=== PATIENT | male | born 1970 | race Asian ===

== ENCOUNTER 2016-07-02 10:31 | Outpatient (CLI) | payer OTHER ==
[~2016-07-02 10:31] MED LIST: ALPR0.2583 PO; ATOR40TA68 PO; GLIP-172 PO; LOSA100T11 PO; METF-305 PO
[2016-07-02 11:26] LABS: BASOPHILS % (AUTO) 0.5 % (0.0-2.0); EOSINOPHILS # (AUTO) 0.1 K/uL (0.0-0.4); EOSINOPHILS % (AUTO) 1.7 % (0.0-4.0); HEMATOCRIT 46.6 % (36-54); HEMOGLOBIN 15.6 g/dL (14.0-18.0); LYMPHOCYTES # (AUTO) 2.2 K/uL (1.0-5.5); LYMPHOCYTES % (AUTO) 28.5 % (20.5-51.5); MEAN CORPUSCULAR HEMOGLOBIN 30 pg (27-31); MEAN CORPUSCULAR HGB CONC 33 % (32-36); MEAN CORPUSCULAR VOLUME 90 fL (79.0-98.0); MONOCYTES # (AUTO) 0.6 K/uL (0.0-1.0); MONOCYTES % (AUTO) 7.4 % (1.7-9.3); NEUTROPHILS # (AUTO) 4.9 K/uL (1.8-7.7); NEUTROPHILS % (AUTO) 61.9 % (40.0-70.0); PLATELET COUNT (AUTO) 305 K/uL (130-430); RED BLOOD CELL COUNT(AUTO) 5.21 MIL/uL (4.2-6.2); RED CELL DISTRIBUTION WIDTH 12.7 % (9.0-15.0); WHITE BLOOD COUNT (AUTO) 7.8 K/uL (4.8-10.8)
[2016-07-02 11:48] LABS: CALCIUM 9.1 mg/dL (8.4-11.0); CREATININE 0.93 mg/dL (0.55-1.30); POTASSIUM 3.9 mmol/L (3.5-5.1); THYROID STIMULATING HORMONE 0.36 uIu/mL (0.34-4.82); TOTAL BILIRUBIN 0.7 mg/dL (0.0-1.0); TOTAL PROTEIN, SERUM 7.9 g/dL (6.4-8.3)
[2016-07-03 12:09] LABS: PROSTATE SPECIFIC AG 0.3 ng/mL (0.0-4.0)
[2016-07-03 13:53] LABS: HEMOGLOBIN A1C 7.5 % (4.8-5.6)
== END 2016-07-02 19:21 | disposition home or self-care (01) ==
LOC: SLB 10:31
PROVIDERS: ATTEND Internal Medicine
DX: E11.9 Type 2 diabetes mellitus without complications (principal); I10 Essential (primary) hypertension; E78.5 Hyperlipidemia, unspecified
CPT/HCPCS: 36415; 80053; 80061; 82043; 82306; 82570; 83036; 84153; 84443-TC; 85025

== ENCOUNTER 2017-03-07 05:19 | Inpatient (IN) | payer OTHER ==
[~2017-03-07] VITALS: Ht 172.7 cm; Wt 108.4 kg
[2017-03-07 05:23] VITALS: BP_SYST 131
[2017-03-07] MEDS ORDERED: NACL 0.9% 1,000 ML IV ONE ×2 (05:27→05:30)
[2017-03-07] MEDS ORDERED: ASPIRIN 81 MG TAB.CHEW PO ONE (05:30)
[2017-03-07] MEDS ORDERED: NITROGLYCERIN 1 INCH (GM) OINT. ONE (05:39)
[2017-03-07] MEDS ORDERED: ASPIRIN 81 MG TAB.CHEW ONE (05:40)
[2017-03-07] MEDS ORDERED: NITROGLYCERIN 1 INCH (GM) OINT. TP ONE (05:45)
[2017-03-07] MEDS ORDERED: ASPIRIN 325 MG TABLET (ECOTRIN) PO ONE (05:45)
[2017-03-07 05:50] LABS: BASOPHILS # (AUTO) 0.1 K/uL (0.0-0.2); BASOPHILS % (AUTO) 0.8 % (0.0-2.0); EOSINOPHILS # (AUTO) 0.2 K/uL (0.0-0.4); EOSINOPHILS % (AUTO) 2.9 % (0.0-4.0); HEMATOCRIT 45.3 % (36-54); HEMOGLOBIN 14.7 g/dL (14.0-18.0); LYMPHOCYTES # (AUTO) 2.2 K/uL (1.0-5.5); LYMPHOCYTES % (AUTO) 31.7 % (20.5-51.5); MEAN CORPUSCULAR HEMOGLOBIN 29 pg (27-31); MEAN CORPUSCULAR HGB CONC 33 % (32-36); MEAN CORPUSCULAR VOLUME 89 fL (79.0-98.0); MONOCYTES # (AUTO) 1.1 K/uL (0.0-1.0); NEUTROPHILS # (AUTO) 3.3 K/uL (1.8-7.7); NEUTROPHILS % (AUTO) 48.6 % (40.0-70.0); PLATELET COUNT (AUTO) 326 K/uL (130-430); RED BLOOD CELL COUNT(AUTO) 5.07 MIL/uL (4.2-6.2); WHITE BLOOD COUNT (AUTO) 6.9 K/uL (4.8-10.8)
[2017-03-07 06:02] LABS: BILIRUBIN,URINE NEGATIVE (NEGATIVE); BLOOD, URINE NEGATIVE (NEGATIVE); CLARITY/URINE CLEAR (CLEAR); COLOR,URINE YELLOW (YELLOW); GLUCOSE,URINE NEGATIVE (NEGATIVE); KETONES,URINE NEGATIVE (NEGATIVE); LEUKOCYTE ESTERASE ,URINE NEGATIVE (NEGATIVE); NITRITE, URINE NEGATIVE (NEGATIVE); PH,URINE 6.5 (5.0-8.0); PROTEIN URINE NEGATIVE (NEGATIVE); UROBILINOGEN,URINE 0.2 (0.2-1.0)
[2017-03-07 06:06] LABS: CREATININE 0.88 mg/dL (0.55-1.30); POTASSIUM 3.3 mmol/L (3.5-5.1)
[2017-03-07] MEDS ORDERED: GLIP10TA11 PO (06:13)
[2017-03-07] MEDS ORDERED: OMEP40CA33 PO (06:13)
[2017-03-07] MEDS ORDERED: ASPI81TA2 PO (06:13)
[2017-03-07] MEDS ORDERED: GABA-531 PO (06:13)
[2017-03-07] MEDS ORDERED: HYDR25TA4 PO (06:13)
[2017-03-07] MEDS ORDERED: MORPHINE 4 MG/ML INJ. SYRINGE IVP ONE (06:15)
[2017-03-07] MEDS ORDERED: POTASSIUM CHLORIDE 20 MEQ/PKT PACKET PO ONE (06:30)
[2017-03-07] MEDS ORDERED: POTASSIUM CHLORIDE 20 MEQ/PKT PACKET ONE (06:31)
[2017-03-07] MEDS ORDERED: LORazepam 2 MG/ML VIAL (FOR ER USE) ONE (06:35)
[2017-03-07] MEDS ORDERED: LORazepam 2 MG/ML VIAL (FOR ER USE) IVP ONE (06:45)
[2017-03-07 06:50] VITALS: BP_SYST 120
[2017-03-07 07:47] LABS: ALBUMIN 3.6 g/dL (3.4-4.8); BILIRUBIN,DIRECT 0.1 mg/dL (0.0-0.3); TOTAL BILIRUBIN 0.3 mg/dL (0.0-1.0)
[2017-03-07 08:00] VITALS: BP_SYST 121
[2017-03-07] MEDS: ASPIRIN 81 MG TAB.CHEW PO SCH (10:45)
[2017-03-07] MEDS ORDERED: ACETAMINOPHEN 325 MG TABLET PO PRN (11:00)
[2017-03-07 11:35] VITALS: BP_SYST 121
[2017-03-07] MEDS ORDERED: traMADol HCL HCL 50 MG TABLET (ULTRAM) PO PRN ×2 (11:45)
[2017-03-07] MEDS: INSULIN REGULAR, HUMAN 100 UNITS/ML, 10 ML VIAL (novoLIN R) SUBCUT PRN ×2 (12:09→17:19)
[2017-03-07] MEDS: traMADol HCL HCL 50 MG TABLET (ULTRAM) PO SCH ×3 (15:41→23:44)
[2017-03-07 15:54] VITALS: BP_SYST 115
[2017-03-07] MEDS ORDERED: ENOXAPARIN SODIUM 40 MG/0.4 ML SYRINGE SUBCUT SCH (17:00)
[2017-03-07] MEDS: LORazepam 1 MG TABLET PO PRN (17:16)
[2017-03-07] MEDS ORDERED: POTASSIUM CHLORIDE 20 MEQ/PKT PACKET PO SCH (18:00)
[2017-03-07] MEDS: metFORMIN HCL 500 MG TABLET PO SCH (18:05)
[2017-03-07 19:58] VITALS: BP_SYST 127
[2017-03-08 00:40] VITALS: BP_SYST 120
[2017-03-08 04:40] VITALS: BP_SYST 121
[2017-03-08] MEDS: traMADol HCL HCL 50 MG TABLET (ULTRAM) PO SCH ×2 (06:17→11:34)
[2017-03-08] MEDS: LORazepam 1 MG TABLET PO PRN (06:18)
[2017-03-08 07:18] LABS: ANION GAP 8 (5-15); CALCIUM 9.1 mg/dL (8.4-11.0); CHLORIDE 104 mmol/L (98-107); CREATININE 0.78 mg/dL (0.55-1.30); GLUCOSE 177 mg/dL (70-99); POTASSIUM 4.3 mmol/L (3.5-5.1); SODIUM SERUM 137 mmol/L (136-145); UREA NITROGEN, BLOOD 13 mg/dL (8-21)
[2017-03-08 07:21] LABS: GFR AFRICAN AMERICAN 136 mL/min (>90)
[2017-03-08 07:22] LABS: THYROID STIMULATING HORMONE 1.29 uIu/mL (0.36-3.74)
[2017-03-08 08:00] VITALS: BP_SYST 129
[2017-03-08] MEDS: ASPIRIN 81 MG TAB.CHEW PO SCH (08:19)
[2017-03-08] MEDS: metFORMIN HCL 500 MG TABLET PO SCH (08:19)
[2017-03-08] MEDS ORDERED: HYDROCHLOROTHIAZIDE 25 MG TABLET (HCTZ) PO SCH (09:00)
[2017-03-08] MEDS ORDERED: OMEPRAZOLE 20 MG CAPSULE.DR (PriLOSEC) PO SCH (09:00)
[2017-03-08] MEDS ORDERED: GABAPENTIN 300 MG CAPSULE PO SCH (09:00)
[2017-03-08] MEDS ORDERED: ATORVASTATIN 20 MG TABLET PO SCH (09:00)
[2017-03-08] MEDS ORDERED: LOSARTAN POTASSIUM 50 MG TABLET (COZAAR) PO SCH (09:00)
[2017-03-08] MEDS: INSULIN REGULAR, HUMAN 100 UNITS/ML, 10 ML VIAL (novoLIN R) SUBCUT PRN (11:36)
[2017-03-08 12:27] VITALS: BP_SYST 134
[2017-03-08 12:52] VITALS: BP_SYST 134
[2017-03-09 06:09] LABS: HEPATITIS A AB, IgM Negative (Negative); HEPATITIS B CORE AB, IgM Negative (Negative); HEPATITIS B SURFACE AG Negative (Negative)
[2017-03-09 08:06] LABS: % FREE PSA 46.7 % (.); FREE PSA 0.14 ng/mL; PROSTATE SPECIFIC AG TOTAL 0.3 ng/mL (0.0-4.0)
== END 2017-03-08 13:17 | disposition home or self-care (01) | DRG 313 ==
LOC: SED 05:19 → STU 06:16
PROVIDERS: ADMIT Internal Medicine; ATTEND Internal Medicine
DX: R07.89 Other chest pain (principal); E11.9 Type 2 diabetes mellitus without complications; E87.6 Hypokalemia; E78.5 Hyperlipidemia, unspecified; E66.09 Other obesity due to excess calories; I10 Essential (primary) hypertension; K21.9 Gastro-esophageal reflux disease without esophagitis; F41.9 Anxiety disorder, unspecified; F17.200 Nicotine dependence, unspecified, uncomplicated; Z80.3 Family history of malignant neoplasm of breast; Z82.49 Family history of ischemic heart disease and other diseases of the circulatory system; Z83.3 Family history of diabetes mellitus; Z68.36 Body mass index [BMI] 36.0-36.9, adult; Z79.899 Other long term (current) drug therapy; Z79.82 Long term (current) use of aspirin
CPT/HCPCS: 36415; 71010; 72050-TC; 80048; 80061; 80076; 81003; 82306; 82962; 83036; 83735-TC; 84153; 84443-TC; 84484; 85025; 86705; 86709; 87340; 93005; 96361; 96374; 96375; 99285; J1650; J2060; J2270; J7030

== ENCOUNTER 2017-05-23 06:09 | Inpatient (IN) | payer OTHER ==
[~2017-05-23] VITALS: Ht 172.7 cm; Wt 107.0 kg
[2017-05-23] VITALS (7 sets, daily range): BP systolic 106–134
[~2017-05-23 06:09] MED LIST changes: +ASPI81TA2 PO; +GABA-531 PO; +HYDR25TA4 PO; +OMEP40CA33 PO
[2017-05-23] MEDS ORDERED: ASPIRIN 81 MG TAB.CHEW PO ONE (06:45)
[2017-05-23 07:07] LABS: BASOPHILS # (AUTO) 0.1 K/uL (0.0-0.2); BASOPHILS % (AUTO) 0.6 % (0.0-2.0); EOSINOPHILS # (AUTO) 0.2 K/uL (0.0-0.4); EOSINOPHILS % (AUTO) 2.1 % (0.0-4.0); HEMATOCRIT 45.3 % (36-54); LYMPHOCYTES % (AUTO) 23.8 % (20.5-51.5); MEAN CORPUSCULAR HEMOGLOBIN 30 pg (27-31); MEAN CORPUSCULAR HGB CONC 33 % (32-36); MEAN CORPUSCULAR VOLUME 89 fL (79.0-98.0); MONOCYTES # (AUTO) 0.7 K/uL (0.0-1.0); MONOCYTES % (AUTO) 7.6 % (1.7-9.3); NEUTROPHILS # (AUTO) 5.6 K/uL (1.8-7.7); NEUTROPHILS % (AUTO) 65.9 % (40.0-70.0); PLATELET COUNT (AUTO) 340 K/uL (130-430); RED BLOOD CELL COUNT(AUTO) 5.09 MIL/uL (4.2-6.2); RED CELL DISTRIBUTION WIDTH 12.6 % (9.0-15.0); WHITE BLOOD COUNT (AUTO) 8.6 K/uL (4.8-10.8)
[2017-05-23 07:17] LABS: CALCIUM 9.3 mg/dL (8.4-11.0); CREATININE 0.91 mg/dL (0.55-1.30); POTASSIUM 3.6 mmol/L (3.5-5.1)
[2017-05-23 07:18] LABS: INR 0.9 (0.80-1.20); PROTHROMBIN TIME 9.5 SECS (9.5-12.5)
[2017-05-23 07:22] LABS: ALBUMIN 3.7 g/dL (3.4-4.8); TOTAL BILIRUBIN 0.3 mg/dL (0.0-1.0)
[2017-05-23] MEDS ORDERED: NITROGLYCERIN 0.4 MG TAB.SUBL SL ONE ×2 (07:48→08:00)
[2017-05-23] MEDS ORDERED: NACL 0.9% 1,000 ML IV ONE (08:00)
[2017-05-23] MEDS ORDERED: CLOPIDOGREL BISULFATE 75 MG TABLET PO ONE (08:00)
[2017-05-23] MEDS ORDERED: GLUCOSE 15 GM GEL (in 37.5 GM TUBE) PO PRN ×2 (08:30)
[2017-05-23] MEDS ORDERED: DEXTROSE 50%-WATER 50 ML DISP.SYRIN IVP PRN ×2 (08:30)
[2017-05-23] MEDS ORDERED: ALPRAZolam 0.25 MG TABLET PO SCH (09:00)
[2017-05-23] MEDS ORDERED: glipiZIDE XL 5 MG TAB ( GLUCOTROL XL) PO ONE (10:00)
[2017-05-23] MEDS: ATORVASTATIN 20 MG TABLET PO SCH (11:01)
[2017-05-23] MEDS: GABAPENTIN 300 MG CAPSULE PO SCH (11:01)
[2017-05-23] MEDS: ASPIRIN 81 MG TAB.CHEW PO SCH (11:02)
[2017-05-23] MEDS: OMEPRAZOLE 20 MG CAPSULE.DR (PriLOSEC) PO SCH (11:02)
[2017-05-23] MEDS: LOSARTAN POTASSIUM 50 MG TABLET (COZAAR) PO SCH (11:02)
[2017-05-23] MEDS: INSULIN ASPART 100 UNITS/ML, 10 ML VIAL (NovoLOG) SUBCUT PRN ×3 (12:18→21:19)
[2017-05-23] MEDS: ALPRAZolam 0.25 MG TABLET PO PRN ×2 (12:19→20:08)
[2017-05-23] MEDS: metFORMIN HCL 500 MG TABLET PO SCH (17:21)
[2017-05-24 00:13] VITALS: BP_SYST 108
[2017-05-24] MEDS: INSULIN ASPART 100 UNITS/ML, 10 ML VIAL (NovoLOG) SUBCUT PRN ×2 (06:08→11:29)
[2017-05-24 07:56] LABS: ALBUMIN 3.7 g/dL (3.4-4.8); CALCIUM 9.7 mg/dL (8.4-11.0); CREATININE 0.97 mg/dL (0.55-1.30); POTASSIUM 4.5 mmol/L (3.5-5.1); THYROID STIMULATING HORMONE 0.39 uIu/mL (0.34-4.82); TOTAL BILIRUBIN 0.5 mg/dL (0.0-1.0)
[2017-05-24] MEDS: metFORMIN HCL 500 MG TABLET PO SCH (08:00)
[2017-05-24 08:05] VITALS: BP_SYST 124
[2017-05-24] MEDS: ASPIRIN 81 MG TAB.CHEW PO SCH (08:08)
[2017-05-24] MEDS: GABAPENTIN 300 MG CAPSULE PO SCH (08:08)
[2017-05-24] MEDS: LOSARTAN POTASSIUM 50 MG TABLET (COZAAR) PO SCH (08:08)
[2017-05-24] MEDS: ATORVASTATIN 20 MG TABLET PO SCH (08:08)
[2017-05-24] MEDS: OMEPRAZOLE 20 MG CAPSULE.DR (PriLOSEC) PO SCH (08:08)
[2017-05-24] MEDS ORDERED: glipiZIDE XL 5 MG TAB ( GLUCOTROL XL) PO SCH ×2 (09:00→17:00)
[2017-05-24] MEDS: ALPRAZolam 0.25 MG TABLET PO PRN (10:09)
[2017-05-24] MEDS ORDERED: busPIRone HCL 5 MG TABLET PO ONE (11:30)
[2017-05-24] MEDS ORDERED: busPIRone HCL 5 MG TABLET ONE (11:48)
[2017-05-24 12:26] VITALS: BP_SYST 131
[2017-05-24 15:42] VITALS: BP_SYST 142
[2017-05-24 16:55] VITALS: BP_SYST 137
[2017-05-24] MEDS ORDERED: busPIRone HCL 5 MG TABLET PO SCH (21:00)
== END 2017-05-24 16:12 | disposition home or self-care (01) | DRG 392 ==
LOC: SED 06:09 → STU 08:12
PROVIDERS: ADMIT Internal Medicine; ATTEND Internal Medicine
DX: K21.9 Gastro-esophageal reflux disease without esophagitis (principal); E66.01 Morbid (severe) obesity due to excess calories; E87.1 Hypo-osmolality and hyponatremia; E11.9 Type 2 diabetes mellitus without complications; E78.5 Hyperlipidemia, unspecified; I10 Essential (primary) hypertension; F41.9 Anxiety disorder, unspecified; F17.200 Nicotine dependence, unspecified, uncomplicated; Z80.3 Family history of malignant neoplasm of breast; Z82.49 Family history of ischemic heart disease and other diseases of the circulatory system; Z83.3 Family history of diabetes mellitus; Z68.35 Body mass index [BMI] 35.0-35.9, adult; Z79.899 Other long term (current) drug therapy; Z79.82 Long term (current) use of aspirin; Z71.6 Tobacco abuse counseling
CPT/HCPCS: 36415; 71045; 80053; 80061; 82550-TC; 82962; 83036; 84443-TC; 84484; 85025; 85610-TC; 93005; 93017; 96360; 99285; J1815; J7030

== ENCOUNTER 2017-11-04 06:55 | Day surgery (SDC) | payer OTHER ==
[~2017-11-04] VITALS: Ht 172.7 cm; Wt 104.8 kg
[~2017-11-04 06:55] MED LIST changes: -ALPR0.2583 PO; +ASPI-1155 PO; -ASPI81TA2 PO; -GLIP-172 PO; +GLIP-214 PO; -HYDR25TA4 PO; -LOSA100T11 PO; +LOSA100T3 PO; -METF-305 PO; +METF10004 PO
[2017-11-04] MEDS ORDERED: MIDAZOLAM HCL 5 MG/5 ML VIAL ONE (08:02)
[2017-11-04] MEDS ORDERED: MEPERIDINE HCL/PF 100 MG/ML AMP ONE (08:02)
[2017-11-04] MEDS: MIDAZOLAM HCL 5 MG/5 ML VIAL ONE ×2 (09:16→09:19)
[2017-11-04] MEDS: fentaNYL CITRATE/PF 100 MCG/2 ML AMP ONE ×2 (09:16→09:19)
[2017-11-04 11:32] VITALS: BP_SYST 120
== END 2017-11-04 10:35 | disposition home or self-care (01) ==
LOC: SDS 06:55
PROVIDERS: ATTEND Internal Medicine Gastroenterology
DX: K31.7 Polyp of stomach and duodenum (principal); K29.70 Gastritis, unspecified, without bleeding; F41.9 Anxiety disorder, unspecified; E11.9 Type 2 diabetes mellitus without complications; K21.9 Gastro-esophageal reflux disease without esophagitis; E66.01 Morbid (severe) obesity due to excess calories; Z68.35 Body mass index [BMI] 35.0-35.9, adult; I10 Essential (primary) hypertension; E78.5 Hyperlipidemia, unspecified; F15.90 Other stimulant use, unspecified, uncomplicated; F17.210 Nicotine dependence, cigarettes, uncomplicated; Z79.82 Long term (current) use of aspirin; Z79.84 Long term (current) use of oral hypoglycemic drugs; Z79.899 Other long term (current) drug therapy; Z72.89 Other problems related to lifestyle; Z83.3 Family history of diabetes mellitus; Z80.3 Family history of malignant neoplasm of breast; Z82.49 Family history of ischemic heart disease and other diseases of the circulatory system
CPT/HCPCS: 43239; 43251; 88305; 88312; 88313; J2250; J3010; J2175

== ENCOUNTER 2018-03-21 05:50 | Day surgery (SDC) | payer OTHER ==
[~2018-03-21] VITALS: Ht 172.7 cm; Wt 104.8 kg
[2018-03-21] MEDS ORDERED: SIMETHICONE 40 MG/0.6 ML ML ONE (06:32)
[2018-03-21] MEDS: fentaNYL CITRATE/PF 100 MCG/2 ML AMP ONE ×2 (08:10→08:12)
[2018-03-21] MEDS: MIDAZOLAM HCL 5 MG/5 ML VIAL ONE ×3 (08:10→08:16)
[2018-03-21 10:06] VITALS: BP_SYST 135
== END 2018-03-21 09:25 | disposition home or self-care (01) ==
LOC: SMU 05:50 → SDS 05:50
PROVIDERS: ATTEND Internal Medicine
DX: Z12.11 Encounter for screening for malignant neoplasm of colon (principal); D12.3 Benign neoplasm of transverse colon; D12.5 Benign neoplasm of sigmoid colon; K62.1 Rectal polyp; I10 Essential (primary) hypertension; E11.9 Type 2 diabetes mellitus without complications; E78.5 Hyperlipidemia, unspecified; Z79.899 Other long term (current) drug therapy; Z79.84 Long term (current) use of oral hypoglycemic drugs; F17.210 Nicotine dependence, cigarettes, uncomplicated; Z68.35 Body mass index [BMI] 35.0-35.9, adult
CPT/HCPCS: 45380; 45385; 82962; 88305; J2250; J3010

== ENCOUNTER 2018-09-03 22:47 | Emergency (ER) | payer OTHER ==
[~2018-09-03] VITALS: Ht 172.7 cm; Wt 106.6 kg
[~2018-09-03 22:47] MED LIST changes: -GLIP-214 PO; +GLIP10TA21 PO; +METF-381 PO; -METF10004 PO
[2018-09-03 23:03] VITALS: BP_SYST 142
[2018-09-03] MEDS ORDERED: MORPHINE 4 MG/ML INJ. SYRINGE IVP ONE (23:30)
[2018-09-03] MEDS ORDERED: ONDANSETRON HCL 4 MG/2 ML VIAL IVP ONE (23:30)
[2018-09-03 23:44] LABS: BASOPHILS # (AUTO) 0.1 K/uL (0.0-0.2); BASOPHILS % (AUTO) 0.8 % (0.0-2.0); EOSINOPHILS # (AUTO) 0.1 K/uL (0.0-0.4); EOSINOPHILS % (AUTO) 1.2 % (0.0-4.0); HEMOGLOBIN 15.3 g/dL (14.0-18.0); LYMPHOCYTES % (AUTO) 27.1 % (20.5-51.5); MEAN CORPUSCULAR HEMOGLOBIN 31 pg (27-31); MEAN CORPUSCULAR HGB CONC 34 % (32-36); MEAN CORPUSCULAR VOLUME 90 fL (79.0-98.0); MONOCYTES # (AUTO) 0.9 K/uL (0.0-1.0); NEUTROPHILS % (AUTO) 62.9 % (40.0-70.0); PLATELET COUNT (AUTO) 330 K/uL (130-430); RED CELL DISTRIBUTION WIDTH 13.4 % (9.0-15.0); WHITE BLOOD COUNT (AUTO) 11.1 K/uL (4.8-10.8)
[2018-09-04 00:02] LABS: CREATININE 1.1 mg/dL (0.55-1.30); POTASSIUM 3.7 mmol/L (3.5-5.1)
[2018-09-04 00:03] LABS: ALBUMIN 3.5 g/dL (3.4-4.8); TOTAL BILIRUBIN 0.4 mg/dL (0.0-1.0)
[2018-09-04] MEDS ORDERED: KETOROLAC TROMETHAMINE 30 MG VIAL IVP ONE (01:00)
[2018-09-04] MEDS ORDERED: KETOROLAC TROMETHAMINE 30 MG VIAL IM ONE (01:00)
[2018-09-04 01:08] VITALS: BP_SYST 136
== END 2018-09-04 01:08 | disposition home or self-care (01) ==
LOC: SED 22:47
DX: G44.209 Tension-type headache, unspecified, not intractable (principal); E11.9 Type 2 diabetes mellitus without complications; I10 Essential (primary) hypertension; K21.9 Gastro-esophageal reflux disease without esophagitis; E78.00 Pure hypercholesterolemia, unspecified; F17.200 Nicotine dependence, unspecified, uncomplicated; Z79.82 Long term (current) use of aspirin; Z79.899 Other long term (current) drug therapy
CPT/HCPCS: 36415; 70450; 80053; 85025; 93005; 96374; 96375; 99284; J1885; J2270; J2405

== ENCOUNTER 2019-11-01 09:19 | Outpatient (CLI) | payer OTHER ==
[2019-11-01 11:35] LABS: BASOPHILS % (AUTO) 0.7 % (0.0-2.0); EOSINOPHILS # (AUTO) 0.1 K/uL (0.0-0.4); EOSINOPHILS % (AUTO) 1.8 % (0.0-4.0); HEMOGLOBIN 15.7 g/dL (14.0-18.0); LYMPHOCYTES # (AUTO) 2.1 K/uL (1.0-5.5); LYMPHOCYTES % (AUTO) 30.6 % (20.5-51.5); MEAN CORPUSCULAR HEMOGLOBIN 31 pg (27-31); MEAN CORPUSCULAR HGB CONC 34 % (32-36); MEAN CORPUSCULAR VOLUME 91 fL (79.0-98.0); MONOCYTES # (AUTO) 0.6 K/uL (0.0-1.0); NEUTROPHILS # (AUTO) 3.9 K/uL (1.8-7.7); NEUTROPHILS % (AUTO) 57.9 % (40.0-70.0); PLATELET COUNT (AUTO) 308 K/uL (130-430); RED BLOOD CELL COUNT(AUTO) 5.07 MIL/uL (4.2-6.2); RED CELL DISTRIBUTION WIDTH 13.6 % (9.0-15.0); WHITE BLOOD COUNT (AUTO) 6.8 K/uL (4.8-10.8)
[2019-11-01 11:37] LABS: ALBUMIN 3.7 g/dL (3.4-4.8); CALCIUM 9.5 mg/dL (8.4-11.0); CREATININE 1.07 mg/dL (0.55-1.30); POTASSIUM 4.5 mmol/L (3.5-5.1); THYROID STIMULATING HORMONE 0.61 uIu/mL (0.34-4.82); TOTAL BILIRUBIN 0.5 mg/dL (0.0-1.0)
[2019-11-02 08:06] LABS: PROSTATE SPECIFIC AG 0.2 ng/mL (0.0-4.0); T4 (THYROXINE) 5.9 ug/dL (4.5-12.0)
[2019-11-04 08:43] LABS: HEMOGLOBIN A1C 6.5 % (4.8-5.6)
== END 2019-11-01 21:12 | disposition home or self-care (01) ==
LOC: SLB 09:19
DX: E11.9 Type 2 diabetes mellitus without complications (principal); E78.5 Hyperlipidemia, unspecified; E55.9 Vitamin D deficiency, unspecified; R53.83 Other fatigue; Z12.11 Encounter for screening for malignant neoplasm of colon; Z12.5 Encounter for screening for malignant neoplasm of prostate
CPT/HCPCS: 36415; 80053; 80061; 82272; 82306; 83036; 84153; 84436; 84443-TC; 85025

== ENCOUNTER 2020-07-06 10:35 | Outpatient (CLI) | payer OTHER ==
[~2020-07-06 10:35] MED LIST changes: +OMEP40CA13 PO; -OMEP40CA33 PO
[2020-07-06 11:12] LABS: BASOPHILS % (AUTO) 0.5 % (0.0-2.0); EOSINOPHILS # (AUTO) 0.1 K/uL (0.0-0.4); EOSINOPHILS % (AUTO) 1.5 % (0.0-4.0); HEMATOCRIT 44.5 % (36-54); HEMOGLOBIN 15.2 g/dL (14.0-18.0); LYMPHOCYTES # (AUTO) 1.9 K/uL (1.0-5.5); LYMPHOCYTES % (AUTO) 26.1 % (20.5-51.5); MEAN CORPUSCULAR HEMOGLOBIN 31 pg (27-31); MEAN CORPUSCULAR HGB CONC 34 % (32-36); MEAN CORPUSCULAR VOLUME 91 fL (79.0-98.0); MONOCYTES # (AUTO) 0.7 K/uL (0.0-1.0); MONOCYTES % (AUTO) 9.3 % (1.7-9.3); NEUTROPHILS # (AUTO) 4.6 K/uL (1.8-7.7); NEUTROPHILS % (AUTO) 62.6 % (40.0-70.0); PLATELET COUNT (AUTO) 315 K/uL (130-430); RED BLOOD CELL COUNT(AUTO) 4.88 MIL/uL (4.2-6.2); RED CELL DISTRIBUTION WIDTH 13.4 % (9.0-15.0); WHITE BLOOD COUNT (AUTO) 7.3 K/uL (4.8-10.8)
[2020-07-06 11:50] LABS: CALCIUM 9.1 mg/dL (8.4-11.0); CREATININE 1.13 mg/dL (0.55-1.30); TOTAL BILIRUBIN 0.3 mg/dL (0.0-1.0)
[2020-07-06 11:51] LABS: ALBUMIN 3.7 g/dL (3.4-4.8); URIC ACID 7.4 mg/dL (2.4-7.0)
== END 2020-07-06 20:16 | disposition home or self-care (01) ==
LOC: SLB 10:35
DX: Z00.00 Encounter for general adult medical examination without abnormal findings (principal); E11.9 Type 2 diabetes mellitus without complications; E78.5 Hyperlipidemia, unspecified; M10.9 Gout, unspecified; K92.1 Melena
CPT/HCPCS: 36415; 80053; 82272; 83036; 84550-TC; 85025